=== PATIENT | female | born 1950 | race Caucasian/White ===

== ENCOUNTER 2024-04-29 18:40 | Emergency (ER) | payer MEDICARE ==
[~2024-04-29] VITALS: Ht 149.9 cm; Wt 76.8 kg
[2024-04-29 19:04] VITALS: BP 159/69; PULSE 79; RESP 18; TEMP 97.7; O2SAT 98
[2024-04-29 19:21] VITALS: O2SAT 98
[2024-04-29] MEDS ORDERED: IBUP-2213 PO (19:50)
[2024-04-29] MEDS ORDERED: ACET-8905 PO (19:50)
[2024-04-29] MEDS: KETOROLAC 60 MG/2 ML VIAL IM ONE (19:57)
[2024-04-29 20:11] VITALS: BP 150/75; PULSE 77; RESP 16; TEMP 98.1; O2SAT 98
== END 2024-04-29 20:17 | disposition home or self-care (01) ==
LOC: MED 18:40
DX: M54.50 Low back pain, unspecified (principal); I10 Essential (primary) hypertension; Z88.8 Allergy status to other drugs, medicaments and biological substances
CPT/HCPCS: 81002; 96372; 99283; J1885